=== PATIENT | male | born 1945 | race Caucasian/White ===

== ENCOUNTER 2020-07-27 08:53 | Outpatient (REF) | payer MEDICARE, SELFPAY ==
[2020-07-27 11:20] LABS: MANUAL DIFF FLAG NO
[2020-07-27 11:25] LABS: Basophils Percent Auto 0.4 % (0-2); Eosinophils Percent Auto 0.9 % (0-4); Hematocrit 38.5 % (42-52); Hemoglobin 13.4 g/dl (14.0-18.0); Imm Gran Abs Auto 0.01 X10*3/uL (0.00-0.03); Imm Gran Pct Auto 0.2 % (0.0-0.4); Immature Retic Fraction 8.3 % (2.3-13.4); Lymphocytes Absolute Auto 1.3 X10*3/uL (1.2-4.9); Lymphocytes Percent Auto 28.7 % (20-40); Mean Corpuscular HGB Conc 34.8 g/dl (31.0-36.0); Mean Corpuscular Hemoglobin 36.8 pg (27.0-33.0); Mean Corpuscular Volume 105.8 fL (80-98); Mean Platelet Volume 10.4 fL (9.4-12.4); Monocytes Absolute Auto 0.4 X10*3/uL (0.1-1.2); Monocytes Percent Auto 8.6 % (2-11); Neutrophils Absolute Auto 2.8 X10*3/uL (2.0-8.3); Neutrophils Percent Auto 61.2 % (45-73); Platelet Count 219 X10*3/uL (160-400); Red Blood Count 3.64 X10*6/uL (4.60-5.80); Red Cell Distribution Width 12.2 % (11.0-16.0); Retic HGB Equivalent 41.1 pg (30.0-35.0); Reticulocyte Percent 1.2 % (0.5-1.8); Reticulocytes Absolute 0.045 X10*6/uL (0.026-0.095); White Blood Count 4.6 X10*3/uL (4.8-10.8)
[2020-07-27 11:35] LABS: Estimated Average Glucose 88 mg/dL; Hemoglobin A1c % 4.7 %
[2020-07-27 11:52] LABS: Alanine Aminotransferase 19 U/L (0-40); Albumin Level 4.7 g/dL (3.5-5.0); Alkaline Phosphatase 76 U/L (39-117); Anion Gap 12 (12-20); Aspartate Amino Transferase 17 U/L (5-37); Bilirubin Total 0.7 mg/dL (0.0-1.0); Blood Urea Nitrogen 30 mg/dL (9-16); Calcium 9.2 mg/dL (8.4-10.2); Carbon Dioxide 26 mmol/L (22-29); Chloride 105 mmol/L (96-108); Cholesterol 137 mg/dL; Estimated Glomerular Filt Rate > 60; Glucose Fasting 99 mg/dL (60-99); HDL Cholesterol 54 mg/dL; Iron 166 mcg/dL (45-160); LDL Cholesterol Calculated 73 mg/dl; Percent Iron Saturation 53 % (15-50); Potassium 4.3 mmol/l (3.3-5.1); Sodium 139 mmol/L (135-145); Total Iron Binding Capacity 315 mcg/dL (228-428); Total Protein 7.4 g/dL (6.5-8.0); Triglycerides 54 mg/dL; Unsaturated Iron Binding 149 ug/dL
[2020-07-27 11:55] LABS: Glucose Urine UA NEG (NEG); Leukocyte Esterase Urine NEG (NEG); Nitrite Urine NEG (NEG); Specific Gravity - Urine 1.015 (1.005-1.025); Urine Blood TRACE (NEG); Urine Ketones NEG (NEG); Urine Protein NEG (NEG-TRACE)
[2020-07-27 11:59] LABS: Appearance Urine CLEAR; Color Urine YELLOW
[2020-07-27 12:13] LABS: Vitamin D 25-OH Total 31.8 ng/mL (>30)
[2020-07-27 12:21] LABS: Folate 10.2 ng/mL (> or = 4.0); Vitamin B12 400 pg/mL (200-900)
[2020-07-27 12:36] LABS: RBC Urine 0-2 /HPF (0); WBC Urine 0 /HPF (0-4)
== END 2020-07-27 08:54 | disposition home or self-care (01) ==
LOC: HO.HMGCLDS 08:53
PROVIDERS: PCP Internal Medicine; Visit Provider Internal Medicine
DX: I10 Essential (primary) hypertension (principal); I25.10 Atherosclerotic heart disease of native coronary artery without angina pectoris; E78.5 Hyperlipidemia, unspecified; R73.01 Impaired fasting glucose; D53.9 Nutritional anemia, unspecified; E55.9 Vitamin D deficiency, unspecified
CPT/HCPCS: 36415; 80053; 80061; 81001; 82306; 82607; 82746; 83036; 83540; 85025; 85045

== ENCOUNTER 2020-12-21 08:21 | Outpatient (REF) | payer MEDICARE, SELFPAY ==
[2020-12-21 11:07] LABS: MANUAL DIFF FLAG NO
[2020-12-21 11:26] LABS: Basophils Percent Auto 0.5 % (0-2); Eosinophils Absolute Auto 0.1 X10*3/uL (0.0-0.4); Eosinophils Percent Auto 1.5 % (0-4); Hemoglobin 12.5 g/dl (14.0-18.0); Imm Gran Abs Auto 0.01 X10*3/uL (0.00-0.03); Imm Gran Pct Auto 0.2 % (0.0-0.4); Lymphocytes Absolute Auto 1.2 X10*3/uL (1.2-4.9); Lymphocytes Percent Auto 28.9 % (20-40); Mean Corpuscular HGB Conc 35.7 g/dl (31.0-36.0); Mean Corpuscular Hemoglobin 37.4 pg (27.0-33.0); Mean Corpuscular Volume 104.8 fL (80-98); Mean Platelet Volume 10.1 fL (9.4-12.4); Monocytes Absolute Auto 0.3 X10*3/uL (0.1-1.2); Monocytes Percent Auto 8.1 % (2-11); Neutrophils Absolute Auto 2.5 X10*3/uL (2.0-8.3); Neutrophils Percent Auto 60.8 % (45-73); Platelet Count 203 X10*3/uL (160-400); Red Blood Count 3.34 X10*6/uL (4.60-5.80); Red Cell Distribution Width 12.8 % (11.0-16.0); White Blood Count 4.1 X10*3/uL (4.8-10.8)
[2020-12-21 12:03] LABS: Alanine Aminotransferase 21 U/L (0-40); Albumin Level 4.5 g/dL (3.5-5.0); Alkaline Phosphatase 67 U/L (39-117); Anion Gap 12 (12-20); Aspartate Amino Transferase 18 U/L (5-37); Blood Urea Nitrogen 34 mg/dL (9-16); Calcium 9.2 mg/dL (8.4-10.2); Carbon Dioxide 24 mmol/L (22-29); Chloride 108 mmol/L (96-108); Cholesterol 131 mg/dL; Estimated Glomerular Filt Rate > 60; Glucose Fasting 96 mg/dL (60-99); HDL Cholesterol 48 mg/dL; LDL Cholesterol Calculated 72 mg/dl; Potassium 4.4 mmol/L (3.3-5.1); Sodium 140 mmol/L (135-145); Triglycerides 58 mg/dL
[2020-12-21 12:26] LABS: TSH reflex Free T4 1.82 uIU/mL (0.32-4.0)
== END 2020-12-21 08:22 | disposition home or self-care (01) ==
LOC: HO.HMGCLDS 08:21
PROVIDERS: PCP Internal Medicine; Visit Provider Internal Medicine
DX: I10 Essential (primary) hypertension (principal); D53.9 Nutritional anemia, unspecified; I25.10 Atherosclerotic heart disease of native coronary artery without angina pectoris; E78.00 Pure hypercholesterolemia, unspecified; R73.01 Impaired fasting glucose
CPT/HCPCS: 36415; 80053; 80061; 84443; 85025

== ENCOUNTER 2021-04-20 08:32 | Outpatient (REF) | payer MEDICARE, SELFPAY ==
[2021-04-20 11:33] LABS: MANUAL DIFF FLAG NO
[2021-04-20 12:02] LABS: Glucose Urine UA NEG (NEG); Leukocyte Esterase Urine NEG (NEG); Nitrite Urine NEG (NEG); Urine Blood TRACE (NEG); Urine Ketones NEG (NEG); Urine Protein NEG (NEG-TRACE)
[2021-04-20 12:04] LABS: Alanine Aminotransferase 15 U/L (0-40); Albumin Level 4.6 g/dL (3.5-5.0); Alkaline Phosphatase 68 U/L (39-117); Anion Gap 13 (12-20); Aspartate Amino Transferase 19 U/L (5-37); Bilirubin Total 1.1 mg/dL (0.0-1.0); Blood Urea Nitrogen 30 mg/dL (9-16); Calcium 9.4 mg/dL (8.4-10.2); Carbon Dioxide 23 mmol/L (22-29); Chloride 108 mmol/L (96-108); Cholesterol 121 mg/dL; Estimated Glomerular Filt Rate > 60; Glucose Fasting 96 mg/dL (60-99); HDL Cholesterol 48 mg/dL; LDL Cholesterol Calculated 62 mg/dl; Potassium 4.4 mmol/L (3.3-5.1); Sodium 140 mmol/L (135-145); Total Protein 7.2 g/dL (6.5-8.0); Triglycerides 56 mg/dL
[2021-04-20 12:05] LABS: Basophils Percent Auto 0.5 % (0-2); Eosinophils Percent Auto 0.7 % (0-4); Hematocrit 35.9 % (42-52); Hemoglobin 12.6 g/dl (14.0-18.0); Imm Gran Abs Auto 0.01 X10*3/uL (0.00-0.03); Imm Gran Pct Auto 0.2 % (0.0-0.4); Lymphocytes Absolute Auto 1.2 X10*3/uL (1.2-4.9); Lymphocytes Percent Auto 28.9 % (20-40); Mean Corpuscular HGB Conc 35.1 g/dl (31.0-36.0); Mean Corpuscular Hemoglobin 36.7 pg (27.0-33.0); Mean Corpuscular Volume 104.7 fL (80-98); Mean Platelet Volume 10.2 fL (9.4-12.4); Monocytes Absolute Auto 0.3 X10*3/uL (0.1-1.2); Monocytes Percent Auto 7.9 % (2-11); Neutrophils Absolute Auto 2.6 X10*3/uL (2.0-8.3); Neutrophils Percent Auto 61.8 % (45-73); Platelet Count 184 X10*3/uL (160-400); Red Blood Count 3.43 X10*6/uL (4.60-5.80); Red Cell Distribution Width 13.2 % (11.0-16.0); White Blood Count 4.2 X10*3/uL (4.8-10.8)
[2021-04-20 12:19] LABS: TSH reflex Free T4 1.47 uIU/mL (0.32-4.0); Vitamin D 25-OH Total 34.4 ng/mL (>30)
[2021-04-20 12:42] LABS: Appearance Urine CLEAR; Color Urine YELLOW
[2021-04-20 12:47] LABS: Folate 12.9 ng/mL (> or = 4.0); Vitamin B12 216 pg/mL (200-900)
== END 2021-04-20 08:33 | disposition home or self-care (01) ==
LOC: HO.HMGCLDS 08:32
PROVIDERS: PCP Internal Medicine; Visit Provider Internal Medicine
DX: I10 Essential (primary) hypertension (principal); I87.303 Chronic venous hypertension (idiopathic) without complications of bilateral lower extremity; D53.9 Nutritional anemia, unspecified; I25.10 Atherosclerotic heart disease of native coronary artery without angina pectoris; E78.00 Pure hypercholesterolemia, unspecified; R73.01 Impaired fasting glucose; E55.9 Vitamin D deficiency, unspecified
CPT/HCPCS: 36415; 80053; 80061; 81001; 81003; 82306; 82607; 82746; 84443; 85025

== ENCOUNTER 2021-06-09 11:10 | Outpatient (REF) | payer MEDICARE, SELFPAY ==
--- NOTE | ~2021-06-09 | MR_ITS ---
MRI OF THE BRAIN WITHOUT IV CONTRAST INDICATION: Ataxia. COMPARISON: None available TECHNIQUE: Multiplanar multisequence MR imaging of the brain was obtained without IV contrast. FINDINGS: There is no hydrocephalus, extra-axial surface collection, or herniation. There is global cerebral volume loss and there is moderate chronic microangiopathy. The major flow voids at the skull base are preserved. There is no acute infarct on diffusion-weighted imaging. There is no intracranial hemorrhage on the gradient recalled echo acquisition. The midline structures are normal. The cerebellar tonsils are normally positioned. The cerebellum and brainstem are normal. The craniocervical junction is normal. Osseous marrow signal intensity is homogenous. The visualized soft tissues are unremarkable. There is a retention cyst within the left maxillary sinus. The remaining paranasal sinuses and the mastoid air cells are clear. MR/MR head/brain wo con IMPRESSION: - There are no acute intracranial findings. - There is global cerebral volume loss and there is moderate chronic microangiopathy.
== END 2021-06-09 11:11 | disposition home or self-care (01) ==
LOC: HO.MRI 11:10
PROVIDERS: Visit Provider Internal Medicine
DX: R27.0 Ataxia, unspecified (principal)
CPT/HCPCS: 70551

== ENCOUNTER 2021-08-21 09:43 | Outpatient (REF) | payer MEDICARE, SELFPAY ==
[2021-08-21 10:18] LABS: MANUAL DIFF FLAG NO
[2021-08-21 10:21] LABS: Basophils Percent Auto 0.5 % (0-2); Eosinophils Absolute Auto 0.1 X10*3/uL (0.0-0.4); Eosinophils Percent Auto 1.2 % (0-4); Hematocrit 37.3 % (42.0-52.0); Hemoglobin 13.2 g/dl (14.0-18.0); Imm Gran Abs Auto 0.01 X10*3/uL (0.00-0.03); Imm Gran Pct Auto 0.2 % (0.0-0.4); Lymphocytes Absolute Auto 0.8 X10*3/uL (1.2-4.9); Lymphocytes Percent Auto 20.1 % (20-40); Mean Corpuscular HGB Conc 35.4 g/dl (31.0-36.0); Mean Corpuscular Hemoglobin 37.7 pg (27.0-33.0); Mean Corpuscular Volume 106.6 fL (80.0-98.0); Monocytes Absolute Auto 0.4 X10*3/uL (0.1-1.2); Neutrophils Absolute Auto 2.77 x10*3/uL (2.0-8.3); Platelet Count 235 X10*3/uL (160-400)
[2021-08-21 10:58] LABS: Alanine Aminotransferase 14 U/L (0-40); Albumin Level 4.2 g/dL (3.5-5.0); Alkaline Phosphatase 67 U/L (39-117); Anion Gap 12 (12-20); Aspartate Amino Transferase 17 U/L (5-37); Bilirubin Total 0.7 mg/dL (0.0-1.0); Blood Urea Nitrogen 17 mg/dL (9-16); Calcium 9.1 mg/dL (8.4-10.2); Carbon Dioxide 23 mmol/L (22-29); Chloride 110 mmol/L (96-108); Cholesterol 146 mg/dL; Estimated Glomerular Filt Rate > 60; Glucose Fasting 116 mg/dL (60-99); HDL Cholesterol 59 mg/dL; LDL Cholesterol Calculated 76 mg/dl; Potassium 4.3 mmol/L (3.3-5.1); Sodium 141 mmol/L (135-145); Total Protein 6.8 g/dL (6.5-8.0); Triglycerides 59 mg/dL
[2021-08-21 11:09] LABS: TSH reflex Free T4 1.35 uIU/mL (0.32-4.0)
[2021-08-21 11:30] LABS: Folate 12.9 ng/mL (> or = 4.0); Vitamin B12 1036 pg/mL (200-900)
== END 2021-08-21 09:44 | disposition home or self-care (01) ==
LOC: HO.10HDL 09:43
PROVIDERS: Visit Provider Internal Medicine
DX: I10 Essential (primary) hypertension (principal); E78.00 Pure hypercholesterolemia, unspecified; E53.8 Deficiency of other specified B group vitamins
CPT/HCPCS: 36415; 80053; 80061; 82607; 82746; 84443; 85025

== ENCOUNTER 2021-09-20 14:00 | Outpatient (RCR) | payer MEDICARE, SELFPAY ==
--- NOTE | 2022-02-07 07:49 | MHC.PT.DC ---
[facility] [place] [facility] [place] [facility] [place] [facility] [address] Greg Navarrete [address] [facility] [phone] F: [phone] F: [phone] F: [phone] F: [phone] Physical Therapy Discharge Report Diagnosis: unsteady gait Date of Surgery: n/a Date of Evaluation: 09/12/21 Date of Discharge: 10/20/21 Treatments to Date: 2 Cancellations to Date: 0 No Shows to Date: 0 Discharge Status: Discharge Summary: Pt elected to stop PT before carrying out plan in physical therapy. Electronically signed by: Jonathan Day PT Please sign and return to therapist. Thank you for your referral.
== END 2022-02-07 07:49 | disposition home or self-care (01) ==
LOC: HO.PTCHIC 14:00
PROVIDERS: PCP Internal Medicine; Visit Provider Nurse Practitioner Family
DX: R26.89 Other abnormalities of gait and mobility (principal); R42 Dizziness and giddiness
CPT/HCPCS: 97110; 97112; 97162